=== PATIENT | female | born 1955 | race Native Hawaiian/Other Pacific Islander ===

== ENCOUNTER 2018-09-11 12:56 | Outpatient (CLI) | payer OTHER | END 2018-09-11 21:24 | disposition home or self-care (01) | LOC: MAMMO 12:56 | DX: Z12.31 Encounter for screening mammogram for malignant neoplasm of breast (principal); M79.672 Pain in left foot ==

== ENCOUNTER 2018-09-17 10:42 | Outpatient (CLI) | payer OTHER | END 2018-09-17 19:22 | disposition home or self-care (01) | LOC: US 10:42 | DX: I73.9 Peripheral vascular disease, unspecified (principal) ==